=== PATIENT | female | born 2000 | race American Indian/Alaskan Native ===

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

== ENCOUNTER 2023-05-22 09:39 | Emergency (ER) | payer OTHER ==
[~2023-05-22] VITALS: Ht 167.6 cm; Wt 69.0 kg
[2023-05-22] MEDS ORDERED: TRAZODONE HCL50 MG PO (13:05)
[2023-05-22] MEDS ORDERED: HYDROXYZINE HCL25 MG PO (13:06)
[2023-05-22 13:59] VITALS: BP 151/88
== END 2023-05-22 14:00 | disposition home or self-care (01) ==
LOC: ED 09:39
DX: F41.9 Anxiety disorder, unspecified (principal)
CPT/HCPCS: 99283; A9270

== ENCOUNTER 2024-10-06 01:13 | Emergency (ER) | payer OTHER ==
[~2024-10-06] VITALS: Ht 167.6 cm; Wt 54.9 kg
[~2024-10-06 01:13] MED LIST: HYDROXYZINE HCL25 MG PO; TRAZODONE HCL50 MG PO
[2024-10-06] MEDS ORDERED: LACTATED RINGER'S 1,000 ML IV ONE (01:45)
[2024-10-06 01:54] LABS: BASOPHILS 0.3 % (0-2); EOSINOPHILS 3.2 % (0-6); HEMATOCRIT 31.6 % (35.0-50.0); HEMOGLOBIN 9.9 g/dL (12.0-18.0); LYMPHOCYTES 9.7 % (24-44); MCH 22.3 (27-36); MCHC 31.4 g/dl (30-36); MCV 70.8 fl (81-99); MONOCYTES 4.9 % (0-12); NEUTROPHILS 81.9 % (39-80); PLATELET COUNT 225 K/uL (140-440); RBC 4.46 M/ul (4.3-5.7); RDW 18.6 (10.5-15.0)
[2024-10-06] MEDS ORDERED: ondansetron HCL 4 MG/2 ML VIAL IV ONE (02:00)
[2024-10-06] MEDS ORDERED: MORPHINE SULFATE 4 MG/ML VIAL IV ONE (02:00)
[2024-10-06 02:13] LABS: ABO A; RH POSITIVE
[2024-10-06 02:32] LABS: ALBUMIN/GLOBULIN RATIO 0.77 (1.1-2.4); ANION GAP 12.4 (7-21); BILIRUBIN, TOTAL 0.1 ng/dL (0.2-1.0); BUN/CREATININE RATIO 18.86 (6.0-28.6); CALCIUM 8.6 mg/dL (8.5-10.1); CREATININE, SERUM 0.53 mg/dL (0.55-1.02); POTASSIUM 3.4 mmol/L (3.5-5.1); PROTEIN, TOTAL 6.9 g/dL (6.4-8.2)
[2024-10-06] MEDS ORDERED: OXYTOCIN 10 UNITS/ML VIAL IM ONE (03:15)
[2024-10-06] MEDS ORDERED: FERROUS SULFAT325 M2 PO (03:26)
[2024-10-06] MEDS ORDERED: VITAMIN C500 M4 PO (03:26)
[2024-10-06] MEDS ORDERED: ONDANSETRON ODT8 MG PO (03:26)
[2024-10-06] MEDS ORDERED: ONDANSETRON 4 MG HOME.PACK SL ONE (03:30)
[2024-10-06] MEDS ORDERED: FERROUS SULFATE 325 MG TAB PO ONE (03:30)
[2024-10-06] MEDS ORDERED: HYDROCODONE BIT/ACETAMINOPHEN 5/325 MG 1 TAB HOME.PACK PO ONE (03:30)
[2024-10-06 05:30] VITALS: BP 106/68
== END 2024-10-06 05:30 | disposition home or self-care (01) ==
LOC: ED 01:13
PROVIDERS: Family Medicine
DX: O03.9 Complete or unspecified spontaneous abortion without complication (principal)
CPT/HCPCS: 36415; 76801; 76817; 80053; 81001; 84702; 85025; 86900; 86901; 96374; 96375; 99284-25; A9270; J2270; J2405; J2590; J7121

== ENCOUNTER 2024-11-04 22:00 | Emergency (ER) | payer OTHER ==
[~2024-11-04] VITALS: Ht 167.6 cm; Wt 72.0 kg
[~2024-11-04 22:00] MED LIST changes: +FERROUS SULFAT325 M2 PO; +ONDANSETRON ODT8 MG PO; +VITAMIN C500 M4 PO
--- OUTSIDE RECORDS SUMMARY | 2024-11-04 22:07 | XMS ---
PreManage Notification: CRYS SOTELO Security [employer] Events No recent Security Events currently on file CRITERIA MET - [facility] - 2 Visits in 30 Days CARE PROVIDERS -Ronald- Dentist: Neurology Director [facility] PHONE: [phone] Corie has no Care Guidelines for this patient. EBruno VISIT COUNT (12 MO.) 2 [facility] TOTAL 2 NOTE: Visits indicate total known visits. ED/UCC VISIT TRACKING (12 MO.) 11/04/2024 22:00 [facility] TYPE: Emergency COMPLAINT: - VAGINAL BLEEDING 10/06/2024 01:14 [facility] TYPE: Emergency COMPLAINT: - VAGINAL BLEEDING DIAGNOSES: - Abnormal uterine and vaginal bleeding, unspecified - Complete or unspecified spontaneous without complication INPATIENT VISIT TRACKING (12 MO.) No inpatient visits to display in this time frame [email or web address]
[2024-11-04 23:43] LABS: ALBUMIN 3.2 g/dL (3.4-5.0); ALBUMIN/GLOBULIN RATIO 1.19 (1.1-2.4); ANION GAP 8.2 (7-21); BILIRUBIN, TOTAL 0.2 mg/dL (0.2-1.0); BUN/CREATININE RATIO 12.9 (6.0-28.6); CALCIUM 8.2 mg/dL (8.5-10.1); CREATININE, SERUM 0.62 mg/dL (0.55-1.02); POTASSIUM 3.2 mmol/L (3.5-5.1); PROTEIN, TOTAL 5.9 g/dL (6.4-8.2)
[2024-11-05 00:18] LABS: BASOPHILS 0.9 % (0-2); EOSINOPHILS 8.3 % (0-6); HEMATOCRIT 24.8 % (35.0-50.0); HEMOGLOBIN 7.8 g/dL (12.0-18.0); LYMPHOCYTES 26.5 % (24-44); MCH 24.6 (27-36); MCHC 31.6 g/dl (30-36); MONOCYTES 7.8 % (0-12); NEUTROPHILS 56.5 % (39-80); PLATELET COUNT 224 K/uL (140-440); RBC 3.18 M/ul (4.3-5.7); RDW 22.2 (10.5-15.0)
[2024-11-05] MEDS ORDERED: ORTHO TRI-CYCL1 EACH PO (01:56)
[2024-11-05 02:08] VITALS: BP 100/60
== END 2024-11-05 02:09 | disposition home or self-care (01) ==
LOC: ED 22:00
PROVIDERS: Internal Medicine
DX: D64.9 Anemia, unspecified (principal); N93.8 Other specified abnormal uterine and vaginal bleeding; Z79.899 Other long term (current) drug therapy
CPT/HCPCS: 36415; 80053; 84703; 85025; 85060; 99284